=== PATIENT | male | born 1965 | race Caucasian/White ===

== ENCOUNTER → 2019-05-16 09:38 | Outpatient (BNVA) | payer OTHER, SELFPAY | PROVIDERS: Family Provider Nurse Practitioner Family; PCP Nurse Practitioner Family; Visit Provider Nurse Practitioner Family | DX: L91.8 Other hypertrophic disorders of the skin (principal) | CPT/HCPCS: 88305 ==

== ENCOUNTER → 2019-12-24 15:23 | Outpatient (BNVA) | payer OTHER, SELFPAY | PROVIDERS: Family Provider Nurse Practitioner Family; PCP Nurse Practitioner Family; Visit Provider Nurse Practitioner Family | DX: Z02.4 Encounter for examination for driving license (principal) | CPT/HCPCS: 81000 ==

== ENCOUNTER → 2020-03-24 14:25 | Outpatient (BNVA) | payer OTHER, SELFPAY | PROVIDERS: Family Provider Nurse Practitioner Family; PCP Nurse Practitioner Family; Visit Provider Nurse Practitioner Family | DX: R05 Cough (principal) | CPT/HCPCS: 87635 ==

== ENCOUNTER 2020-09-28 11:16 | Outpatient (CLI) | payer OTHER, SELFPAY ==
--- NOTE | 2020-09-28 11:46 | XRR_ITS ---
PROCEDURE INFORMATION: Exam: XR Left Shoulder Exam date and time: 09/28/2020 11:46 AM Age: 54 years old Clinical indication: Patient HX: Left shoulder pain for years, having numbness/tingling to elbow. Decreased rom; Additional info: M25.512 - pain in left shoulder TECHNIQUE: Imaging protocol: XR Left shoulder. Views: 2 or more views. COMPARISON: No relevant prior studies available. FINDINGS: Bones/joints: No acute fracture or dislocation. There is a globular calcific density projecting over the soft tissues about the superolateral aspect of the humeral head, consistent with supraspinatus calcific tendinopathy. Soft tissues: Normal. XR/XR shoulder LT min 2V* [id number] IMPRESSION: 1. Supraspinatus calcific tendinopathy. 2. No acute fracture or dislocation.
== END 2020-09-28 11:17 | disposition home or self-care (01) ==
LOC: RAD 11:27
PROVIDERS: PCP Nurse Practitioner Family; Visit Provider Nurse Practitioner Family
DX: M25.512 Pain in left shoulder (principal)
CPT/HCPCS: 73030

== ENCOUNTER → 2023-11-19 14:19 | Outpatient (BNVA) | payer SELFPAY | PROVIDERS: PCP Nurse Practitioner Family; Visit Provider Nurse Practitioner Family | DX: L98.9 Disorder of the skin and subcutaneous tissue, unspecified (principal) | CPT/HCPCS: 88305 ==

== ENCOUNTER → 2024-12-01 08:04 | Outpatient (BNVA) | payer SELFPAY | PROVIDERS: PCP Nurse Practitioner Family; Visit Provider Nurse Practitioner Family | DX: Z02.4 Encounter for examination for driving license (principal) | CPT/HCPCS: 81000 ==